=== PATIENT | female | born 1995 | race Caucasian/White ===

== ENCOUNTER 2021-10-26 22:42 | Emergency (ER) | payer SELFPAY ==
[~2021-10-26] VITALS: Ht 149.9 cm; Wt 63.0 kg
[2021-10-26 22:51] VITALS: BP 132/58
== END 2021-10-27 01:45 | disposition home or self-care (01) ==
LOC: ER 22:42
DX: O26.892 Other specified pregnancy related conditions, second trimester (principal); Z3A.23 23 weeks gestation of pregnancy; S60.221A Contusion of right hand, initial encounter; V49.9XXA Car occupant (driver) (passenger) injured in unspecified traffic accident, initial encounter; Y93.89 Activity, other specified; Y92.89 Other specified places as the place of occurrence of the external cause; Y99.8 Other external cause status
CPT/HCPCS: 36415; 73130; 76805; 86850; 86900; 99284